=== PATIENT | female | born 1960 | race African-American/Black ===

== ENCOUNTER 2023-12-22 09:21 | Emergency (ER) | payer OTHER ==
[~2023-12-22] VITALS: Ht 152.4 cm; Wt 77.0 kg
[2023-12-22 09:31] VITALS: O2SAT 97
[2023-12-22 10:34] LABS: BASOPHILS % 0.9 % (0.0-2.0); EOSINOPHILS % 4.2 % (0.0-5.0); HEMOGLOBIN. 13.7 g/dL (12.0-16.0); LYMPHOCYTES % 21.7 % (20.0-50.0); MEAN CORPUSCULAR HEMOGLOBIN 30.6 pg (28.0-32.0); MEAN CORPUSCULAR HGB CONC 34.2 g/dL (31.0-37.0); MEAN CORPUSCULAR VOLUME 89.5 fL (81.0-99.0); MEAN PLATELET VOLUME 8.1 fl (7.4-10.4); MONOCYTES % 8.5 % (2.0-8.0); NEUTROPHILS % 64.7 % (40.0-76.0); PLATELET 306 x1000/uL (130-400); RED BLOOD CELL COUNT 4.47 mill/uL (4.2-5.4); RED CELL DISTRIBUTION WIDTH 13.9 % (11.6-14.6); WHITE BLOOD COUNT 4.3 x1000/uL (4.5-11.0)
[2023-12-22 11:04] LABS: CARBON DIOXIDE 27 mEq/L (21-32); CHLORIDE 103 mEq/L (98-107); POTASSIUM 3.4 mEq/L (3.5-5.1); SODIUM 139 mEq/L (136-145)
[2023-12-22 11:05] LABS: CALCIUM 9.3 mg/dL (8.7-10.4)
[2023-12-22 11:10] LABS: CREATININE 0.6 mg/dL (0.6-1.0); GLUCOSE 129 mg/dL (70-105); UREA NITROGEN BLOOD 10 mg/dL (9-23)
[2023-12-22 11:26] LABS: TROPONIN I HIGH SENSITIVITY < 4 ng/L (3.0-34)
[2023-12-22] MEDS ORDERED: MECL-299 PO (11:56)
[2023-12-22] MEDS ORDERED: CLAR10 PO (11:56)
[2023-12-22 12:30] VITALS: BP 150/68; PULSE 72; RESP 16; TEMP 97.6
== END 2023-12-22 13:08 | disposition home or self-care (01) ==
LOC: ER 09:30 → CANBEDREQ 13:03 → ER 13:08
DX: R42 Dizziness and giddiness (principal); R11.2 Nausea with vomiting, unspecified
CPT/HCPCS: 36415; 71045; 80048; 83880; 84484; 85025; 93005; 99285